=== PATIENT | male | born 1990 | race Caucasian/White ===

== ENCOUNTER 2024-06-22 20:10 | Emergency (ER) | payer SELFPAY ==
[~2024-06-22] VITALS: Ht 165.1 cm; Wt 75.0 kg
[2024-06-22 20:25] VITALS: O2SAT 99
[2024-06-23] MEDS: KETOROLAC 15MG/ML VIAL IM ONE (03:30)
[2024-06-23 05:54] LABS: BASOPHILS % 0.5 % (0.0-2.0); DIFFERENTIAL COMMENT 0; EOSINOPHILS % 3.2 % (0.0-5.0); HEMATOCRIT. 45.5 % (42.0-52.0); HEMOGLOBIN. 16.3 g/dL (14.0-18.0); LYMPHOCYTES % 40.2 % (20.0-50.0); MEAN CORPUSCULAR HEMOGLOBIN 32.1 pg (28.0-32.0); MEAN CORPUSCULAR HGB CONC 35.8 g/dL (31.0-37.0); MEAN CORPUSCULAR VOLUME 89.7 fL (80.0-94.0); MEAN PLATELET VOLUME 7.6 fl (7.4-10.4); MONOCYTES % 7.4 % (2.0-8.0); NEUTROPHILS % 48.7 % (40.0-76.0); PLATELET 363 x1000/uL (130-400); RED BLOOD CELL COUNT 5.07 mill/uL (4.7-6.1); RED CELL DISTRIBUTION WIDTH 13.4 % (11.6-14.6); WHITE BLOOD COUNT 9.9 x1000/uL (4.5-11.0)
[2024-06-23 06:28] LABS: CHLORIDE 105 mEq/L (98-107); POTASSIUM 3.9 mEq/L (3.5-5.1); SODIUM 139 mEq/L (136-145)
[2024-06-23 06:29] LABS: CALCIUM 9.8 mg/dL (8.7-10.4); CARBON DIOXIDE 25 mEq/L (21-32)
[2024-06-23 06:34] LABS: CREATININE 0.8 mg/dL (0.6-1.3); GLUCOSE 115 mg/dL (70-105); UREA NITROGEN BLOOD 11 mg/dL (9-23)
[2024-06-23 06:36] LABS: ALANINE AMINOTRANSFERASE 101 IU/L (10-49); ASPARTATE AMINOTRANSFERASE 43 IU/L (<34); BILIRUBIN TOTAL 0.4 mg/dL (0.1-1.0); PROTEIN TOTAL 7.2 g/dL (6.0-8.3)
[2024-06-23] MEDS: KETOROLAC 15MG/ML VIAL IM NR (06:39)
[2024-06-23 06:44] LABS: BILIRUBIN DIRECT < 0.1 mg/dL (<=3.0)
[2024-06-23] MEDS ORDERED: KETO10TA2 MT (07:26)
[2024-06-23 07:45] VITALS: BP 125/52; PULSE 88; RESP 16; TEMP 36.78072; O2SAT 99
[2024-06-23 12:15] LABS: CLARITY URINE CLEAR (CLEAR); COLOR URINE YELLOW (YELLOW); GLUCOSE URINE NEGATIVE (NEGATIVE); KETONES URINE NEGATIVE (NEGATIVE); LEUKOCYTE ESTERASE URINE NEGATIVE (NEGATIVE); NITRITE URINE NEGATIVE (NEGATIVE); OCCULT BLOOD URINE NEGATIVE (NEGATIVE); PH URINE 5.5 (4.5-8.0); PROTEIN URINE NEGATIVE (NEGATIVE); SPECIFIC GRAVITY URINE 1.028 (1.005-1.030); UROBILINOGEN URINE 0.2 E.U./dL (0.2-1.0)
== END 2024-06-23 07:49 | disposition home or self-care (01) ==
LOC: ER 20:15
DX: R10.31 Right lower quadrant pain (principal); R79.89 Other specified abnormal findings of blood chemistry
CPT/HCPCS: 99285; 74176; 36415; 80076; 80048; 81003; 83690; 85025; 96372; J1885

== ENCOUNTER 2024-07-28 16:36 | Emergency (ER) | payer SELFPAY ==
[~2024-07-28] VITALS: Ht 167.6 cm; Wt 68.0 kg
[~2024-07-28 16:36] MED LIST: KETO10TA2 MT
[2024-07-28 16:46] VITALS: BP 149/85; PULSE 70; RESP 16; TEMP 36.7; O2SAT 98
[2024-07-28] MEDS ORDERED: FLUORESCEIN SODIUM 1MG/STRIP LEFTEYE ONE (17:30)
[2024-07-28] MEDS ORDERED: TETRACAINE 0.5% OPHTH DROPS 4ML RIGHTEYE ONE (17:30)
== END 2024-07-28 22:27 | disposition left against medical advice (07) ==
LOC: ER 16:36
DX: H53.142 Visual discomfort, left eye (principal); Z53.21 Procedure and treatment not carried out due to patient leaving prior to being seen by health care provider